=== PATIENT | female | born 1995 ===

== ENCOUNTER 2021-04-20 06:43 | Emergency (ER) | payer MEDICAID, OTHER ==
[~2021-04-20] VITALS: Ht 157.5 cm; Wt 99.3 kg
[2021-04-20 06:53] VITALS: BP 116/59
== END 2021-04-20 08:24 | disposition home or self-care (01) ==
LOC: ER 06:43
DX: F41.1 Generalized anxiety disorder (principal); F12.10 Cannabis abuse, uncomplicated